=== PATIENT | female | born 1985 | race Caucasian/White ===

== ENCOUNTER 2019-02-04 14:24 | Emergency (ER) | payer OTHER, SELFPAY ==
[2019-02-04 15:30] LABS: Absolute Lymphocytes (CBC) 1.9 K/uL (0.7-4.9); Basophils % 0.4 % (0-1.3); Hematocrit 33.5 % (36.0-45.0); Lymphocytes % 22.9 % (15.3-44.8); MPV 10.3 fL (7.6-11.3); RBC Red Blood Cell Count 3.72 M/uL (3.86-4.86)
[2019-02-04 15:56] LABS: Potassium 3.5 mmol/L (3.5-5.1)
[2019-02-04 16:19] LABS: Thyroid Stimulating Hormone 5.88 uIU/mL (0.360-3.740)
--- NOTE | 2019-02-04 17:05 | EDPHYS ---
Physician Documentation [facility] Name: Sudha Eisenberg Age: 33 yrs Sex: Female : 1985 Arrival Date: 02/04/2019 Time: 14:28 Bed 30 Private MD: ED Physician Rosario Rivera HPI: 02/04 15:02 This 33 yrs old Female presents to ER via Ambulatory with complaints of ma2 Vaginal Bleeding, + Preg <12wks. 15:02 The patient presents to the emergency department with abdominal pain, of the suprapubic ma2 area, that started yesterday. The estimated gestational age is 5 weeks. Previous pregnancies: the patient has never been . Associated signs and symptoms: Pertinent negatives: chest pain, dysuria, frequency, seizure, shortness of breath. The patient has not experienced similar symptoms in the past. Historical: - Allergies: 14:46 No Known Allergies; tr5 - Home Meds: 14:46 aspirin 81 mg Oral chew [Active]; Folic Acid Oral [Active]; tr5 - PMHx: 14:46 ectopic ; tr5 - Immunization history:: Adult Immunizations up to date. - Social history:: Smoking status: Patient/guardian denies using tobacco, never smoked, Patient/guardian denies using alcohol, street drugs, The patient lives with family. - Ebola Screening: : No symptoms or risks identified at this time. - Family history:: not pertinent. ROS: 15:02 Constitutional: Negative for fever, chills, and weight loss. ma2 15:02 All other systems are negative. Exam: 15:02 Constitutional: This is a well developed, well nourished patient who is awake, alert, ma2 and in no acute distress. Chest/axilla: Normal chest wall appearance and motion. Nontender with no deformity. No lesions are appreciated. Cardiovascular: Regular rate and rhythm with a normal S1 and S2. No gallops, murmurs, or rubs. Normal PMI, no JVD. No pulse deficits. Respiratory: Lungs have equal breath sounds bilaterally, clear to auscultation and percussion. No rales, rhonchi or wheezes noted. No increased work of breathing, no retractions or nasal flaring. Abdomen/GI: Soft, non-tender, with normal bowel sounds. No distension or tympany. No guarding or rebound. No evidence of tenderness throughout. MS/ Extremity: Pulses equal, no cyanosis. Neurovascular intact. Full, normal range of motion. Neuro: Awake and alert, GCS 15, oriented to person, place, time, and situation. Cranial nerves II-XII grossly intact. Motor strength 5/5 in all extremities. Sensory grossly intact. Cerebellar exam normal. Normal gait. Vital Signs: 14:46 BP 111 / 83; Pulse 81; Resp 16; Temp 98.9(O); Pulse Ox 100% on R/A; Weight 63.5 kg; tr5 Height 5 ft. 5 in. (165.10 cm); 16:04 BP 115 / 84; Pulse 85; Resp 16; Pulse Ox 100% on R/A; tr5 14:46 Body Mass Index 23.30 (63.50 kg, 165.10 cm) tr5 MDM: 14:39 Patient medically screened. [facility] 15:02 Differential diagnosis: ectopic , threatining . [facility] 17:03 Data reviewed: vital signs, nurses notes. Counseling: I had a detailed discussion with ma the patient and/or guardian regarding: the historical points, exam findings, and any diagnostic results supporting the discharge/admit diagnosis, the presence of at least one elevated blood pressure reading (>120/80) during this emergency department visit, the need for outpatient follow up. Response to treatment: the patient's symptoms have mildly improved after treatment. 02/04 14:39 Order name: Quantitative Hcg; Complete Time: 16:33 [facility] 02/04 14:39 Order name: Abo/rh Typing; Complete Time: 16:03 [facility] 02/04 14:39 Order name: Basic Metabolic Panel; Complete Time: 16:33 [facility] 02/04 14:39 Order name: CBC with Diff; Complete Time: 16:03 [facility] 02/04 14:56 Order name: TSH; Complete Time: 16:33 [facility] 02/04 14:56 Order name: T4 Free; Complete Time: 16:33 [facility] 02/04 14:39 Order name: IV Saline Lock; Complete Time: 15:18 [facility] 02/04 14:39 Order name: Labs collected and sent; Complete Time: 15:18 [facility] 02/04 14:39 Order name: NPO; Complete Time: 14:49 [facility] 02/04 14:40 Order name: Urine Dipstick-Ancillary (obtain specimen); Complete Time: 15:22 [facility] 02/04 15:00 Order name: Urine Dipstick--Ancillary (enter results) 02/04 15:00 Order name: Urine --Ancillary (enter results) 02/04 17:04 Order name: TRANSVAG OB EDMS Administered Medications: No medications were administered Disposition: 02/04/19 17:04 Discharged to Home. Impression: Hypothyroidism, unspecified, Threatened . - Condition is Stable. - Discharge Instructions: Hypothyroidism, Threatened Miscarriage, Pelvic Rest. - Prescriptions for Levothyroxine 25 mcg Oral Tablet - take 1 tablet by ORAL route once daily take 30 minutes before breakfast; 20 tablet. - Medication Reconciliation Form, Thank You Letter, Antibiotic Education, Prescription Opioid Use, Work release form form. - Follow up: Private Physician; When: Tomorrow; Reason: Continuance of care. - Notes: consultyour obgyn tomorrow morningbefore you takeaspirin.. Signatures: Dispatcher [employer] [facility] Rosario Rivera MD MD ma2 Kee Zuniga RN RN tr5 Corrections: (The following items were deleted from the chart) 17:04 14:57 OB Complete+US.RAD.BRZ ordered. [facility] 17:34 17:04 02/04/2019 17:04 Discharged to Home. Impression: Hypothyroidism, unspecified; tr5 Threatened . Condition is Stable. Discharge Instructions: Hypothyroidism. Prescriptions for Levothyroxine 25 mcg Oral Tablet - take 1 tablet by ORAL route once daily take 30 minutes before breakfast; 20 tablet. and Forms are Medication Reconciliation Form, Thank You Letter, Antibiotic Education, Prescription Opioid Use. Follow up: Private Physician; When: Tomorrow; Reason: Continuance of care. ma2
--- NOTE | 2019-02-04 17:05 | ER ---
Nurse's Notes [facility] Name: Sudha Eisenberg Age: 33 yrs Sex: Female : 1985 Arrival Date: 02/04/2019 Time: 14:28 Bed 30 Private MD: Diagnosis: Hypothyroidism, unspecified;Threatened Presentation: 02/04 14:41 Presenting complaint: Patient states: "Tuesday i started bleeding lightly and have been tr5 on and off since then. Today i started having some cramps but the bleeding has slowed down. I have had many miscarriages in the past as well as an ectopic so I just wanted to get checked out". Transition of care: patient was not received from another setting of care. Onset of symptoms was February 02, 2019. Risk Assessment: Do you want to hurt yourself or someone else? Patient reports no desire to harm self or others. Initial Sepsis Screen: Does the patient meet any 2 criteria? No. Patient's initial sepsis screen is negative. Does the patient have a suspected source of infection? No. Patient's initial sepsis screen is negative. Care prior to arrival: None. 14:41 Method Of Arrival: Ambulatory tr5 14:41 Acuity: PATRICIA 4 tr5 Historical: - Allergies: 14:46 No Known Allergies; tr5 - Home Meds: 14:46 aspirin 81 mg Oral chew [Active]; Folic Acid Oral [Active]; tr5 - PMHx: 14:46 ectopic ; tr5 - Immunization history:: Adult Immunizations up to date. - Social history:: Smoking status: Patient/guardian denies using tobacco, never smoked, Patient/guardian denies using alcohol, street drugs, The patient lives with family. - Ebola Screening: : No symptoms or risks identified at this time. - Family history:: not pertinent. Screenin:49 Abuse screen: Denies threats or abuse. Nutritional screening: No deficits noted. tr5 Tuberculosis screening: No symptoms or risk factors identified. Fall Risk None identified. Assessment: 14:49 Obstetrical Assessment: General assessment: awake and alert, Rupture of membranes tr5 noted. Patient reports abdominal cramping. General: Appears in no apparent distress. Behavior is calm, cooperative, appropriate for age. Pain: Complains of pain in abdomen. Neuro: Level of Consciousness is awake, alert, obeys commands, Oriented to person, place, time, Link Trainer Teacher are equal bilaterally Moves all extremities. Cardiovascular: Heart tones present Capillary refill < 3 seconds Pulses are all present. Edema is absent. Respiratory: Airway is patent Respiratory effort is even, unlabored, Respiratory pattern is regular, symmetrical. GI: Abdomen is flat, Bowel sounds present X 4 quads. Abd is soft X 4 quads Reports lower abdominal pain. : Reports vaginal bleeding that is bright red, light flow. EENT: No signs and/or symptoms were reported regarding the EENT system. 16:09 Reassessment: Patient appears in no apparent distress at this time. Patient and/or tr5 family updated on plan of care and expected duration. Pain level reassessed. Patient is alert, oriented x 3, equal unlabored respirations, skin warm/dry/pink. General:. Vital Signs: 14:46 BP 111 / 83; Pulse 81; Resp 16; Temp 98.9(O); Pulse Ox 100% on R/A; Weight 63.5 kg; tr5 Height 5 ft. 5 in. (165.10 cm); 16:04 BP 115 / 84; Pulse 85; Resp 16; Pulse Ox 100% on R/A; tr5 14:46 Body Mass Index 23.30 (63.50 kg, 165.10 cm) tr5 ED Course: 14:28 Patient arrived in ED. mr 14:39 Rosario Rivera MD is Attending Physician. ma2 14:40 Kee Zuniga, ALE is Primary Nurse. tr5 14:44 Triage completed. tr5 14:45 Arm band placed on Patient placed. tr5 14:49 Bed in low position. Call light in reach. Side rails up X 1. tr5 15:43 Radiology exam delayed due to test not completed at this time. sg3 16:12 Awaiting: Ultrasound. tr5 17:03 Ultrasound completed. Patient tolerated well. Notified. sg3 17:06 TRANSVAG OB In Process Unspecified. EDMS 17:31 No provider procedures requiring assistance completed. IV discontinued. tr5 Administered Medications: No medications were administered Outcome: 17:04 Discharge ordered by . ma2 17:31 Discharged to home tr5 17:31 Condition: stable 17:31 Discharge instructions given to patient, family, Instructed on discharge instructions, follow up and referral plans. medication usage, Demonstrated understanding of instructions, follow-up care, medications. 17:34 Patient left the ED. tr5 Signatures: Dispatcher [employer] Leda Plummer Naima sg3 Rosario Rivera MD MD ma2 Kee Zuniga, RN RN tr5 Corrections: (The following items were deleted from the chart) 15:18 14:46 BP 111 / 83; Pulse 81bpm; Resp 16bpm; Pulse Ox 100% RA; 63.5 kg; Height 5 ft. 5 tr5 in.; BMI: 23.3; tr5
--- NOTE | 2019-02-04 17:14 | RAD REPORT ---
EXAM DESCRIPTION: US - TRANSVAG OB - 02/04/2019 5:06 pm CLINICAL HISTORY: with abdominal pain COMPARISON: None FINDINGS: The uterus measures 9 x 5 x 5 centimeters. A 4 millimeters sac is present within the endo metrium. A pole is not seen. A yolk sac is not demonstrated. The ovaries are normal in size echotexture. Right and left adnexa unremarkable. No significant free fluid IMPRESSION: 4 millimeter sac within the endometrium probably a gestational sac associated with intra uterine . Estimated gestational age 5 weeks 0 days. Other considerations include an incomplete and pseudo gestational sac associated with ectopi c . This all should be correlated clinically and with serial beta HCG levels. Followup endov aginal sonogram in 1 week recommended
[2019-02-04 17:45] VITALS: TEMP 98.9; O2SAT 100
[2019-02-04 17:47] VITALS: BP 115/84
[2019-02-04 20:44] LABS: Urine Blood 2+ (NEG); Urine Glucose NEGATIVE (NEG); Urine Protein NEGATIVE (NEG); Urine Specific Gravity 1.015 (1.005-1.030)
--- OUTSIDE RECORDS SUMMARY | 2019-02-05 07:10 | XMS REPORT ---
:1985 [facility] [address] [place] [address] Care Team Providers Name Role Phone Unavailable Unavailable Unavailable Payers Payer Name Policy Type Policy Number Effective Date Expiration Date Problems This patient has no known problems. Allergies, Adverse Reactions, Alerts Allergy Allergy Status Severity Reaction(s) Onset Inactive Treating Comments Name Type Date Date Clinician No Known DA Active U 2013-07 Allergies 00:00:0 0 Medications This patient has no known medications. Results Test Description Test Time Test Comments Text Results Atomic Results Result Comments CBC W/AUTO DIFF 2018-11-10 10:36:00 Test Item Value Reference Range Comments WHITE BLOOD CELL (test code=WBC) 6.0 K/mm3 6.6-12.1 RED BLOOD CELL (test code=RBC) 3.56 M/mm3 3.45-5.01 HEMOGLOBIN (test code=HGB) 10.7 g/dL 10.7-13.9 HEMATOCRIT (test code=HCT) 32.8 % 32.1-42.1 MEAN CELL VOLUME (test code=MCV) 92 fL 84.1-94.8 MEAN CELL HGB (test code=MCH) 30.1 pg 27-35 MEAN CELL HGB CONCETRATION (test code=MCHC) 32.6 gm/dL 32.2-34.1 RED CELL DISTRIBUTION WIDTH (test code=RDW) 13.1 % 12.4-16.5 PLATELET COUNT (test code=PLT) 192 K/mm3 133-385 IMMATURE PLATELET FRACTION (test code=IPF) 0.0 % 0.0-10.8 MEAN PLATELET VOLUME (test code=MPV) 11.4 fl 9.1-12.7 NEUTROPHIL % (test code=NT%) 49.5 % 56.5-79.4 LYMPHOCYTE % (test code=LY%) 39.0 % 14.3-34.3 MONOCYTE % (test code=MO%) 9.7 % 5.1-10.4 EOSINOPHIL % (test code=EO%) 1.2 % 0.1-3.0 BASOPHIL % (test code=BA%) 0.3 % 0.1-1.0 NEUTROPHIL # (test code=NT#) 3.0 K/mm3 LYMPHOCYTE # (test code=LY#) 2.3 K/mm3 MONOCYTE # (test code=MO#) 0.6 K/mm3 EOSINOPHIL # (test code=EO#) 0.07 K/mm3 BASOPHIL # (test code=BA#) 0.0 K/mm3 RBC MORPHOLOGY REQUIRED (test code=RBCM) NORMAL NORMAL PLATELET MORPHOLOGY REQUIRED (test code=PLTMR) NORMAL NORMAL HCG [id number] 08:17:00 Test Item Value Reference Range Comments HCG SERUM (test code=HCG) 295 INTERPRETATION:VALUES BETWEEN 15-20 milliInternational units/mL NEED TO BERETESTED WITHIN 48 HOURS. All units for these ranges are in milliInternationalunits/mL0-1 WK AFTER CONCEPTION 0-50 1-2 WKS AFTER CONCEPTION 40-3002-3 WKS AFTER CONCEPTION 100-1,0003-4 WKS AFTER CONCEPTION 500-6,0001-2 MONTHS AFTER CONCEPTION 5,000-200,0002-3 MONTHS AFTER CONCEPTION 10,000-100,0002ND TRIMESTER 3,000-50,0003RD TRIMESTER 1,000-50,000 SPECIMENS WITH AN HCG LEVEL FROM 0-6 milliInternationalunits/mL SHOULD BE CONSIDERED NEGATIVE Comments to Dock Guard: noneHGB [id number] 03:32:00 Test Item Value Reference Range Comments HEMOGLOBIN (test code=HGB) 11.4 g/dL 10.7-13.9 HEMATOCRIT (test code=HCT) 34.7 % 32.1-42.1 - US TRANSVAGINAL [id number] 20:06:00 Patient Name: NATALIYA MERINO Unit No: [id number] EXAMS: CPT CODE: [id number] US TRANSVAGINAL W/PELVIS 81480 TRANSABDOMINAL AND TRANSVAGINAL PELVIC ULTRASOUND, BILATERAL DUPLEX OVARIAN DOPPLER INDICATION: Left lower quadrant and pelvic pain. Vaginal bleeding. Rule out ovarian torsion.. HCG 267. TECHNIQUE: Transabdominal and transvaginal pelvic ultrasound was performed with larson scale and Doppler images. COMPARISONS: None FINDINGS: TRANSABDOMINAL PELVIC ULTRASOUND : The uterus measures 8 x 4.5 x 5.4 cm. There is a 1.3 x 0.6 x 1 cm fluid collection within the endometrial canal. There is no yolk sac or pole detected. The right ovary measures 2.2 x 1.5 x 2.1 cm. There is normal color Doppler blood flow to the right ovary. There is a normal low resistance arterial spectral Doppler waveform with peak systolic velocity of 10 cm/s. The left ovary measures 4.6 x 3.6 x 4.7 cm. There is a simple 3.7 cm cyst in the left ovary that requires no additional follow-up. There is normal color Doppler blood flow to the left ovary. There is a normal low resistance arterial and venous spectral Doppler waveform with peak systolic velocity of 70 cm/s. There is no intra-abdominal free fluid. Transvaginal pelvic ultrasound was performed inorder to better visualize the pelvic structures. TRANSVAGINAL PELVIC ULTRASOUND: The cervix is closed and the cervical length is 3.7 cm. The uterus measures 6.4 x 4.7 x 5.6 cm. The endometrial stripe measures 1.2 cm thick. The right ovary measures 2.7 x 1.3 x 2.7 cm and demonstrates normal follicular changes. There is normal color Doppler blood flow to the right ovary. There is a normal low resistance arterial and venous spectral Doppler waveform with peak systolic velocity of 12 cm/s. The left ovary measures 5.1 x 3.9 x 3.5 cm. There is a simple cyst in the left ovary that measures up to 3.6 cm and requires no additional follow-up. There is normal color Doppler blood flow in the left ovary. There is a normal low resistance arterial and venous spectral Doppler waveform with peak systolic velocity of 20 cm/s. The [facility] NAME: NATALIYA MERINO Radiology Department PHYS: MYAH.[email or web address] - Estephania Robert MD [address] : 1985 AGE: 32 SEX: F [place], [place] [address] LOC: JOJO PHONE #: [phone] EXAM DATE: 11/09/2018 STATUS: DEANDRE ER FAX #: [phone] RAD NO: Page 1 Signed Report (CONTINUED) Patient Name: NATALIYA MERINO Unit No: [id number] EXAMS: CPT CODE: [id number] US TRANSVAGINAL W/PELVIS 82103 <Continued> Thereis a trace amount of simple appearing free fluid in the left adnexal region of the pelvis. BILATERAL OVARIAN DUPLEX DOPPLER: There is normal color Doppler blood flow in the left ovary. Thereis a normal low resistance arterial and venous spectral Doppler waveform with peak systolic velocity of 20 cm/s. There is normal color Doppler blood flow to the right ovary. There is a normal low resistance arterial and venous spectral Doppler waveform with peak systolic velocity of 12 cm/s. IMPRESSION: 1. There is a small area of nonspecific fluid in the endometrial canal measuring up to 1.3 cm, but no definitive intrauterine or extrauterine gestational sac sac identified. The findings could be secondary to spontaneous expulsion of products, hidden ectopic with endometrial pseudocyst or very early . Close clinical correlation is recommended. Consider short-term follow-up ultrasound and beta hCG. 2. Normal bilateral ovarian blood flow. 3. There is a benign-appearing simple cyst in the left ovary that measuresup to 3.6 cm in size and requires no additional follow-up. 4. There is a trace amount of simple appearing free fluid in the left adnexal region of the pelvis. at 2005 Reported and signed by: Carlos Vásquez DO CC: Naila Alexander MD; Estephania Robert MD Technologist: Taryn Arciniega RDMS, RVT Probe: [id number] Trnscrbd D/ (2005) [id number] Orig Print D /T: S: 11/09/2018 (2008) The [facility] NAME: NATALIYA MERINO Radiology Department PHYS: Estephania Fields MD [address] : 1985 AGE: 32 SEX: F [place] [address] LOC: JOJO PHONE #: [phone] EXAM DATE: STATUS: REG ER FAX #: [phone] RAD NO: Page 2 Signed Report Patient Name: NATALIYA MERINO Unit No: [id number] EXAMS : CPT CODE: [id number] US TRANSVAGINAL W/PELVIS 27802 <Continued> The [facility] NAME: ANGELIQUENATALIYA RadiologyDepartment PHYS: Estephania Fields MD [address]: 1985 AGE: 32 SEX: F [place], [place] [address] LOC:JOJO PHONE #: [phone] EXAM DATE: 11/09/2018 STATUS: REG ER FAX #: [phone] RAD NO: Page 3 Signed Report- US PELVIS [id number] 20:06:00 Patient Name: NATALIYA MERINO Unit No: [id number] EXAMS: CPT CODE: [id number] US PELVIS COMPLETE 85521 TRANSABDOMINAL AND TRANSVAGINAL PELVIC ULTRASOUND, BILATERAL DUPLEX OVARIAN DOPPLER INDICATION: Left lower quadrant and pelvic pain. Vaginal bleeding. Rule out ovarian torsion.. HCG 267. TECHNIQUE: Transabdominal and transvaginal pelvic ultrasound was performed with larson scale and Doppler images. COMPARISONS: None FINDINGS: TRANSABDOMINAL PELVIC ULTRASOUND : The uterus measures 8 x 4.5 x 5.4 cm. There is a 1.3 x 0.6 x 1 cm fluid collection within the endometrial canal. There is no yolk sac or pole detected. The right ovary measures 2.2 x 1.5 x 2.1 cm. There is normal color Doppler blood flow to the right ovary. There is a normal low resistance arterial spectral Doppler waveform with peak systolic velocity of 10 cm/s. The left ovary measures 4.6 x 3.6 x 4.7 cm. There is a simple 3.7 cm cyst in the left ovary that requires no additional follow-up. There is normal color Doppler blood flow to the left ovary. There is a normal low resistance arterial and venous spectral Doppler waveform with peak systolic velocity of 70 cm/s. There is no intra-abdominal free fluid. Transvaginal pelvic ultrasound was performed inorder to better visualize the pelvic structures. TRANSVAGINAL PELVIC ULTRASOUND: The cervix is closed and the cervical length is 3.7 cm. The uterus measures 6.4 x 4.7 x 5.6 cm. The endometrial stripe measures 1.2 cm thick. The right ovary measures 2.7 x 1.3 x 2.7 cm and demonstrates normal follicular changes. There is normal color Doppler blood flow to the right ovary. There is a normal low resistance arterial and venous spectral Doppler waveform with peak systolic velocity of 12 cm/s. The left ovary measures 5.1 x 3.9 x 3.5 cm. There is a simple cyst in the left ovary that measures up to 3.6 cm and requires no additional follow-up. There is normal color Doppler blood flow in the left ovary. There is a normal low resistance arterial and venous spectral Doppler waveform with peak systolic velocity of 20 cm/s. The [facility] NAME: IRASEMA MERINOBhupinder DENNIS Radiology Department PHYS: FABBY - Estephania Robert MD [address] : 1985 AGE: 32 SEX: F [place], [place] [address] LOC: JOJO PHONE #: [phone] EXAM DATE: 11/09/2018 STATUS: REG ER FAX #: [phone] RAD NO: Page 1 Signed Report (CONTINUED) Patient Name: NATALIYA MERINO JEANNIE Unit No: [id number] EXAMS: CPT CODE: [id number] US PELVIS COMPLETE 11221 <Continued> Thereis a trace amount of simple appearing free fluid in the left adnexal region of the pelvis. BILATERAL OVARIAN DUPLEX DOPPLER: There is normal color Doppler blood flow in the left ovary. Thereis a normal low resistance arterial and venous spectral Doppler waveform with peak systolic velocity of 20 cm/s. There is normal color Doppler blood flow to the right ovary. There is a normal low resistance arterial and venous spectral Doppler waveform with peak systolic velocity of 12 cm/s. IMPRESSION: 1. There is a small area of nonspecific fluid in the endometrial canal measuring up to 1.3 cm, but no definitive intrauterine or extrauterine gestational sac sac identified. The findings could be secondary to spontaneous expulsion of products, hidden ectopic with endometrial pseudocyst or very early . Close clinical correlation is recommended. Consider short-term follow-up ultrasound and beta hCG. 2. Normal bilateral ovarian blood flow. 3. There is a benign-appearing simple cyst in the left ovary that measuresup to 3.6 cm in size and requires no additional follow-up. 4. There is a trace amount of simple appearing free fluid in the left adnexal region of the pelvis. at 2006 Reported and signed by: Carlos Vásquez DO CC: Naila Alexander MD; Estephania Robert MD Technologist: Taryn Arciniega RDMS, RVT Probe: Trnscrbd D/ (2005) [email or web address] Orig Print D /T: S: 11/09/2018 (2008) The [place] [facility] NAME: NATALIYA MERINO Radiology Department PHYS: Estephania Fields MD [address] : 1985 AGE: 32 SEX: F [place] [address] LOC: JohnERS PHONE #: [phone] EXAM DATE: STATUS: REG ER FAX #: [phone] RAD NO: Page 2 Signed Report Patient Name: NATALIYA MERINO JEANNIE Unit No: [id number] EXAMS : CPT CODE: [id number] US PELVIS COMPLETE 22303 <Continued> The [facility] NAME: NATALIYA MERINO RadiologyDepartment PHYS: Estephania Fields MD [address]OB: 1985 AGE: 32 SEX: F [place] [address] LOC:JohnERS PHONE #: [phone] EXAM DATE: 11/09/2018 STATUS: REG ER FAX #: [phone] RAD NO: Page 3 Signed ReportHCG [id number] 19:43:00 Test Item Value Reference Range Comments HCG SERUM (test code=HCG) 267 INTERPRETATION:VALUES BETWEEN 15-20 milliInternational units/mL NEED TO BERETESTED WITHIN 48 HOURS. All units for these ranges are in milliInternationalunits/mL0-1 WK AFTER CONCEPTION 0-50 1-2 WKS AFTER CONCEPTION 40-3002-3 WKS AFTER CONCEPTION 100-1,0003-4 WKS AFTER CONCEPTION 500-6,0001-2 MONTHS AFTER CONCEPTION 5,000-200,0002-3 MONTHS AFTER CONCEPTION 10,000-100,0002ND TRIMESTER 3,000-50,0003RD TRIMESTER 1,000-50,000 SPECIMENS WITH AN HCG LEVEL FROM 0-6 milliInternationalunits/mL SHOULD BE CONSIDERED NEGATIVE COMPREHENSIVE METABOLIC [id number] 19:34:00 Test Item Value Reference Range Comments SODIUM (test code=NA) 137 mEq/L 135-145 POTASSIUM (test code=K) 4.4 mEq/L 3.5-5.0 CHLORIDE (test code=CL) 104 mEq/L 100-115 CARBON DIOXIDE (test code=CO2) 24 mEq/L 22-31 ANION GAP (test code=GAP) 13.40 10-20 GLUCOSE (test code=GLU) 78 mg/dL 65-110 BLOOD UREA NITROGEN (test code=BUN) 12 mg/dL 7-18 GLOMERULAR FILTRATION RATE (test code=GFR) 98 ml/min >60 CREATININE (test code=CREAT) 0.7 mg/dL 0.5-1.0 TOTAL PROTEIN (test code=PROT) 7.8 gm/dL 6.3-8.2 ALBUMIN (test code=ALB) 4.0 gm/dL 3.4-4.8 CALCIUM (test code=CA) 8.9 mg/dL 8.4-10.2 BILIRUBIN TOTAL (test code=BILT) 0.5 mg/dL 0.2-1.0 SGOT/AST (test code=AST) 26 units/L 15-37 SGPT/ALT (test code=ALT) 17 units/L 12-78 ALKALINE PHOSPHATASE TOTAL (test code=ALKP) 53 units/L 46-116 UA RFLX MICR CULT IF [id number] 19:17:00 Test Item Value Reference Range Comments UA COLOR (test code=COLU) YELLOW YELLOW UA APPEARANCE (test code=APPU) CLOUDY CLEAR UA GLUCOSE DIPSTICK (test code=DGLUU) NEGATIVE NEG UA BILIRUBIN DIPSTICK (test code=BILU) NEGATIVE NEG UA KETONE DIPSTICK (test code=KETU) NEGATIVE NEG UA SPECIFIC GRAVITY (test code=SGU) 1.018 1.001-1.035 UA BLOOD DIPSTICK (test code=ADRIANE) 3+ NEG UA PH DIPSTICK (test code=IRMA) 7.0 5-9 UA PROTEIN DIPSTICK (test code=PROU) NEGATIVE NEG UA UROBILINIOGEN DIPSTICK (test code=URO) NEGATIVE mg/dL NEG UA NITRITE DIPSTICK (test code=MOHINI) NEG NEG UA LEUKOCYTE ESTERASE DIPSTICK (test NEG NEG code=LEUU) UA WBC (test code=WBCU) NONE SEEN #/hpf NONE SEEN UA RBC (test code=RBCU) 0-2 #/hpf NONE SEEN UA EPITHELIAL CELLS (test code=EPIU) FEW #/HPF RARE-FEW UA BACTERIA (test code=BACU) RARE /HPF RARE-FEW UA MUCUS (test code=MUCU) RARE NONE SEEN Indication for culture: Suprapubic PainCBC W/AUTO [id number] 19:02:00 Test Item Value Reference Range Comments WHITE BLOOD CELL (test code=WBC) 9.0 K/mm3 6.6-12.1 RED BLOOD CELL (test code=RBC) 3.80 M/mm3 3.45-5.01 HEMOGLOBIN (test code=HGB) 11.4 g/dL 10.7-13.9 HEMATOCRIT (test code=HCT) 34.7 % 32.1-42.1 MEAN CELL VOLUME (test code=MCV) 91 fL 84.1-94.8 MEAN CELL HGB (test code=MCH) 30.0 pg 27-35 MEAN CELL HGB CONCETRATION (test code=MCHC) 32.9 gm/dL 32.2-34.1 RED CELL DISTRIBUTION WIDTH (test code=RDW) 13.1 % 12.4-16.5 PLATELET COUNT (test code=PLT) 287 K/mm3 133-385 IMMATURE PLATELET FRACTION (test code=IPF) 0.0 % 0.0-10.8 MEAN PLATELET VOLUME (test code=MPV) 12.5 fl 9.1-12.7 NEUTROPHIL % (test code=NT%) 60.4 % 56.5-79.4 LYMPHOCYTE % (test code=LY%) 30.2 % 14.3-34.3 MONOCYTE % (test code=MO%) 8.4 % 5.1-10.4 EOSINOPHIL % (test code=EO%) 0.6 % 0.1-3.0 BASOPHIL % (test code=BA%) 0.2 % 0.1-1.0 NEUTROPHIL # (test code=NT#) 5.5 K/mm3 LYMPHOCYTE # (test code=LY#) 2.7 K/mm3 MONOCYTE # (test code=MO#) 0.8 K/mm3 EOSINOPHIL # (test code=EO#) 0.05 K/mm3 BASOPHIL # (test code=BA#) 0.0 K/mm3 RBC MORPHOLOGY REQUIRED (test code=RBCM) NORMAL NORMAL PLATELET MORPHOLOGY REQUIRED (test code=PLTMR) NORMAL NORMAL
== END 2019-02-04 17:34 | disposition home or self-care (01) ==
LOC: ER 14:24
DX: O20.0 Threatened abortion (principal); O99.281 Endocrine, nutritional and metabolic diseases complicating pregnancy, first trimester; E03.9 Hypothyroidism, unspecified; Z3A.01 Less than 8 weeks gestation of pregnancy; Z79.82 Long term (current) use of aspirin
CPT/HCPCS: 36415; 76813; 80048; 81003; 81025; 84439; 84443; 84702; 85025; 86900; 86901; 99283

== ENCOUNTER 2019-02-23 17:24 | Emergency (ER) | payer SELFPAY ==
--- OUTSIDE RECORDS SUMMARY | 2019-02-23 17:26 | XMS REPORT ---
:1985 [facility] [address] [place] [address] Care Team Providers Name Role Phone Unavailable Unavailable Unavailable Payers Payer Name Policy Type Policy Number Effective Date Expiration Date Problems This patient has no known problems. Allergies, Adverse Reactions, Alerts Allergy Allergy Status Severity Reaction(s) Onset Inactive Treating Comments Name Type Date Date Clinician No Known DA Active U 2013-07 Allergies - 00:00:0 0 Medications This patient has no [...] MORPHOLOGY REQUIRED (test code=PLTMR) NORMAL NORMAL HCG [id number] 08:17:00 Test Item Value Reference Range Comments [...] milliInternationalunits/mL SHOULD BE CONSIDERED NEGATIVE Comments to Vehicle Cost Engineer: noneHGB [id number] 03:32:00 Test Item Value Reference Range Comments HEMOGLOBIN (test code=HGB) 11.4 g/dL 10.7-13.9 HEMATOCRIT (test code=HCT) 34.7 % 32.1-42.1 - US TRANSVAGINAL [id number] 20:06:00 Patient Name: NATALIYA MERINO Unit No: [id number] EXAMS: CPT CODE: [id number] US TRANSVAGINAL W/PELVIS 28328 TRANSABDOMINAL AND TRANSVAGINAL PELVIC ULTRASOUND, BILATERAL DUPLEX [...] peak systolic velocity of 20 cm/s. The [facility] NAME: NATALIYA MERINO Radiology Department PHYS: MYAH.14 - Estephania Robert MD [address] : 1985 AGE: 32 SEX: F [place], [place] [address] LOC: JOJO PHONE #: [phone] EXAM DATE: 11/09/2018 STATUS: REG ER FAX #: [phone] RAD NO: Page 1 Signed Report (CONTINUED) Patient Name: NATALIYA MERINO Unit No: [id number] EXAMS: CPT CODE: [id number] US TRANSVAGINAL W/PELVIS 40630 <Continued> Thereis a trace amount of simple [...] Estephania Robert MD Technologist: Taryn Arciniega RDMS, T Probe: [id number] Trnscrbd D/ (2005) [id number] Orig Print D /T: S: 11/09/2018 (2008) [facility] NAME: NATALIYA MERINO Radiology Department PHYS: Estephania Fields MD [address] : 1985 AGE: 32 SEX: [place] [address] LOC: JOJO PHONE #: [phone] EXAM DATE: STATUS: REG ER FAX #: [phone] RAD NO: Page 2 Signed Report Patient Name: NATALIYA MERINO Unit No: [id number] EXAMS : CPT CODE: [id number] US TRANSVAGINAL W/PELVIS 75652 <Continued> The [facility] NAME: NATALIYA MERINO RadiologyDepartment PHYS: MYAHTusharEstephania Davis MD [address]: 1985 AGE: 32 SEX: F [place], [place] [address] LOC:JOJO PHONE #: [phone] EXAM DATE: 11/09/2018 STATUS: REG ER FAX #: [phone] RAD NO: Page 3 Signed Report- US PELVIS [id number] 20:06:00 Patient Name: NATALIYA MERINO Unit No: [id number] EXAMS: CPT CODE: [id number] US PELVIS COMPLETE 54612 TRANSABDOMINAL AND TRANSVAGINAL PELVIC ULTRASOUND, BILATERAL DUPLEX [...] peak systolic velocity of 20 cm/s. The [facility] NAME: IRASEMA MERINOBhupinder DENNIS Radiology Department PHYS: FABBY - Estephania Robert MD [address] : 1985 AGE: 32 SEX: F [place], [place] [address] LOC: JOJO PHONE #: [phone] EXAM DATE: 11/09/2018 STATUS: REG ER FAX #: [phone] RAD NO: Page 1 Signed Report (CONTINUED) Patient Name: NATALIYA MERINO JEANNIE Unit No: [id number] EXAMS: CPT CODE: [id number] US PELVIS COMPLETE 75665 <Continued> Thereis a trace amount of simple [...] Arciniega RDMS, RVT Probe: Trnscrbd D/ (2005) [email or web address] Orig Print D /T: S: 11/09/2018 (2008) The [facility] NAME: NATALIYA MERINO Radiology Department PHYS: Estephania Fields MD [address] : 1985 AGE: 32 SEX: F [place] [address] [facility] #: [phone] EXAM DATE: STATUS: [facility] ER FAX #: [phone] RAD NO: Page 2 Signed Report Patient Name: NATALIYA MERINO JEANNIE Unit No: [id number] EXAMS : CPT CODE: [id number] US PELVIS COMPLETE 22085 <Continued> The [facility] NAME: NATALIYA MERINO RadiologyDepartment PHYS: Estephania Fields MD [address]OB: 1985 AGE: 32 SEX: F [place] [address] LOC:JohnERS PHONE #: [phone] EXAM DATE: 11/09/2018 STATUS: REG ER FAX #: [phone] RAD NO: Page 3 Signed ReportHCG [id number] 19:43:00 Test Item Value Reference Range [...] milliInternationalunits/mL SHOULD BE CONSIDERED NEGATIVE COMPREHENSIVE METABOLIC [id number] 19:34:00 Test Item Value Reference Range Comments [...] units/L 46-116 UA RFLX MICR CULT IF [id number] 19:17:00 Test Item Value Reference Range Comments [...] SEEN Indication for culture: Suprapubic PainCBC W/AUTO [id number] 19:02:00 Test Item Value Reference Range Comments [...]
--- NOTE | 2019-02-23 19:25 | ER ---
Nurse's Notes [facility] Name: Sudha Tang Age: 33 yrs Sex: Female : 1985 Arrival Date: 02/23/2019 Time: 17:27 Bed 9 Private MD: out of town, doctor Diagnosis: Less than 8 weeks gestation of ;Threatened Presentation: 02/23 18:41 Presenting complaint: Patient states: vaginal bleeding that is spotting that began aa5 today. Reports lower abd pain and reports being approximately 8 weeks . Transition of care: patient was not received from another setting of care. Onset of symptoms was January 2019. Risk Assessment: Do you want to hurt yourself or someone else? Patient reports no desire to harm self or others. Initial Sepsis Screen: Does the patient meet any 2 criteria? No. Patient's initial sepsis screen is negative. Does the patient have a suspected source of infection? No. Patient's initial sepsis screen is negative. Care prior to arrival: None. 18:41 Acuity: PATRICIA 3 aa5 18:41 Method Of Arrival: Ambulatory aa5 Triage Assessment: 21:32 Pain: Denies pain. eb1 LOCAL DRIVER: 18:43 7, Full Term 1, Premature 1, 4, Living 2, LMP 12/25/2018 aa5 20:45 7, 4, Living 2, LMP 12/25/2018 kb Historical: - Allergies: 18:43 No Known Allergies; aa5 - PMHx: 18:43 ectopic ; aa5 - PSHx: 18:43 None; aa5 - Immunization history:: Flu vaccine is not up to date. - Social history:: Smoking status: Patient/guardian denies using tobacco. - Ebola Screening: : No symptoms or risks identified at this time. Screenin:00 Abuse screen: Denies threats or abuse. Nutritional screening: No deficits noted. bb Tuberculosis screening: No symptoms or risk factors identified. Fall Risk None identified. Assessment: 20:00 General: Appears in no apparent distress. uncomfortable, Behavior is calm, cooperative. bb Neuro: Level of Consciousness is awake, alert, obeys commands, Oriented to person, place, time, situation. Cardiovascular: No deficits noted. Respiratory: Respiratory effort is even, unlabored. GI: No signs and/or symptoms were reported involving the gastrointestinal system. : Reports vaginal bleeding that is. Derm: Skin is pink, warm \T\ dry. Musculoskeletal: Circulation, motion, and sensation intact. Vital Signs: 18:43 BP 121 / 83; Pulse 95; Resp 18 S; Temp 98.0(TE); Pulse Ox 100% on R/A; Weight 64.86 kg aa5 (R); Height 5 ft. 4 in. (162.56 cm) (R); 18:43 Body Mass Index 24.55 (64.86 kg, 162.56 cm) aa5 ED Course: 17:27 Patient arrived in ED. mr 17:27 out of town, doctor is Private Physician. mr 17:51 Bambi Monae FNP-C is PHCP. kb 17:51 Joseph Brito MD is Attending Physician. kb 18:41 Arm band placed on. aa5 18:42 Triage completed. aa5 19:24 Patient's name was called from ER lobby. No response. Unable to locate patient. Will bb disposition as left without being seen by a provider. 19:41 Bambi Monae FNP-C is PHCP. kb 19:41 Alexander Baig MD is Attending Physician. kb 20:00 Patient has correct armband on for positive identification. Call light in reach. bb 20:28 Missed attempt(s): 22 gauge in right antecubital area. lt1 20:28 Initial lab(s) drawn, by me, sent to lab. Inserted saline lock: 22 gauge in left lt1 antecubital area, using aseptic technique. 20:52 No provider procedures requiring assistance completed. bb 21:32 IV discontinued, intact, bleeding controlled, No redness/swelling at site. Pressure eb1 dressing applied. Administered Medications: No medications were administered Outcome: 19:24 Patient left the ED. bb 20:49 Discharge ordered by MD. kb 21:32 Discharged to home with family. eb1 21:32 Condition: good 21:32 Discharge instructions given to patient, Instructed on discharge instructions, medication usage, Demonstrated understanding of instructions, follow-up care, medications, Prescriptions given X 1. 21:33 Patient left the ED. eb1 Signatures: Bambi Monae FNP-C FNP-Leda Sanchez mr Celina Mosquera RN RN bb Cady Vo, RN RN aa5 Elin Hammonds, RN RN eb1 Ban Hu lt1
[2019-02-23 20:35] LABS: Absolute Lymphocytes (CBC) 2.3 K/uL (0.7-4.9); Basophils % 0.8 % (0-1.3); Hematocrit 32.2 % (36.0-45.0); Lymphocytes % 22.7 % (15.3-44.8); MPV 9.8 fL (7.6-11.3); RBC Red Blood Cell Count 3.56 M/uL (3.86-4.86)
[2019-02-23 20:49] LABS: Urine Blood 1+ (NEG); Urine Glucose NEGATIVE (NEG); Urine Protein NEGATIVE (NEG)
--- NOTE | 2019-02-23 20:50 | EDPHYS ---
Physician Documentation [facility] Name: Sudha Tang Age: 33 yrs Sex: Female : 1985 Arrival Date: 02/23/2019 Time: 17:27 Bed 9 Private MD: out of town, doctor ED Physician Alexander Baig HPI: 02/23 20:45 This 33 yrs old Female presents to ER via Ambulatory with complaints of kb Vaginal Bleeding, + Preg <12wks. 20:45 The patient presents to the emergency department with vaginal bleeding, described as kb spotting. The estimated gestational age is 8 weeks. course: care: private OB physician, KARRI. Previous pregnancies: in previous pregnancies patient has had. Associated signs and symptoms: Pertinent positives: vaginal bleeding. The patient has experienced similar episodes in the past. The patient has been recently seen by a physician:. 20:46 Pt reports spotting that started today. Her OB is in [place] at [facility] and told kb her to come get checked out due to pts history. Pt has appt with OB on Tuesday for follow up. Pt also requests a refill of levothyroxine for a couple of days until she can get to her appt. States she normally has to be on it when she is and her levels were off last time she came to the ER for this so the ER dr then started her on 25mcg daily. States she has one more left so she needs a few to get her to Tuesday. 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 - Social history:: Smoking status: Patient/guardian denies using tobacco. - Ebola Screening: : No symptoms or risks identified at this time. ROS: 20:44 Constitutional: Negative for fever, chills, and weight loss, Neck: Negative for injury, kb pain, and swelling, Cardiovascular: Negative for chest pain, palpitations, and edema, Respiratory: Negative for shortness of breath, cough, wheezing, and pleuritic chest pain, Abdomen/GI: Negative for abdominal pain, nausea, vomiting, diarrhea, and constipation, Back: Negative for injury and pain, MS/Extremity: Negative for injury and deformity, Skin: Negative for injury, rash, and discoloration, Neuro: Negative for headache, weakness, numbness, tingling, and seizure. 20:44 : Positive for vaginal bleeding. Exam: 20:44 Constitutional: This is a well developed, well nourished patient who is awake, alert, kb and in no acute distress. Head/Face: Normocephalic, atraumatic. Neck: Trachea midline, no thyromegaly or masses palpated, and no cervical lymphadenopathy. Supple, full range of motion without nuchal rigidity, or vertebral point tenderness. No Meningismus. Chest/axilla: Normal chest wall appearance and motion. Nontender with no deformity. No lesions are appreciated. Cardiovascular: Regular rate and rhythm with a normal S1 and S2. No gallops, murmurs, or rubs. Normal PMI, no JVD. No pulse deficits. Respiratory: Lungs have equal breath sounds bilaterally, clear to auscultation and percussion. No rales, rhonchi or wheezes noted. No increased work of breathing, no retractions or nasal flaring. Abdomen/GI: Soft, non-tender, with normal bowel sounds. No distension or tympany. No guarding or rebound. No evidence of tenderness throughout. Back: No spinal tenderness. No costovertebral tenderness. Full range of motion. Skin: Warm, dry with normal turgor. Normal color with no rashes, no lesions, and no evidence of cellulitis. MS/ Extremity: Pulses equal, no cyanosis. Neurovascular intact. Full, normal range of motion. Neuro: Awake and alert, GCS 15, oriented to person, place, time, and situation. Cranial nerves II-XII grossly intact. Motor strength 5/5 in all extremities. Sensory grossly intact. Cerebellar exam normal. Normal gait. Vital Signs: 18:43 BP 121 / 83; Pulse 95; Resp 18 S; Temp 98.0(TE); Pulse Ox 100% on R/A; Weight 64.86 kg aa5 (R); Height 5 ft. 4 in. (162.56 cm) (R); 18:43 Body Mass Index 24.55 (64.86 kg, 162.56 cm) aa5 MDM: 19:47 Patient medically screened. kb 20:45 Data reviewed: vital signs, nurses notes. Data interpreted: Pulse oximetry: on room air kb is 100 %. Interpretation: normal. Counseling: I had a detailed discussion with the patient and/or guardian regarding: the historical points, exam findings, and any diagnostic results supporting the discharge/admit diagnosis, lab results, radiology results, the need for outpatient follow up, a family practitioner, to return to the emergency department if symptoms worsen or persist or if there are any questions or concerns that arise at home. 20:49 ED course: Pt is O+ based on last visit. Pt wants to go home now and have her dr get kb the results of blood work on Tuesday. 02/23 18:47 Order name: Quantitative Hcg 02/23 18:47 Order name: Abo/rh Typing 02/23 18:47 Order name: Basic Metabolic Panel 02/23 18:47 Order name: CBC with Diff 02/23 20:42 Order name: Urine Dipstick--Ancillary (enter results) [facility] 02/23 20:42 Order name: Urine --Ancillary (enter results) [facility] 02/23 18:43 Order name: US Transvaginal Ob 02/23 20:50 Order name: Urine --Ancillary; Complete Time: 20:53 [facility] 02/23 20:50 Order name: Urine Dipstick-Ancillary; Complete Time: 20:53 [facility] 02/23 20:51 Order name: CBC with Automated Diff; Complete Time: 20:53 [facility] 02/23 21:04 Order name: US; Complete Time: 21:07 [facility] 02/23 21:09 Order name: Basic Metabolic Panel; Complete Time: 21:11 [facility] 02/23 21:09 Order name: HCG, Quantitative; Complete Time: 21:11 [facility] 02/23 21:31 Order name: ABO/RH typing [facility] 02/23 18:47 Order name: Urine Test (obtain specimen) 02/23 18:47 Order name: IV Saline Lock; Complete Time: 20:29 02/23 18:47 Order name: Labs collected and sent; Complete Time: 20: 02/23 18:47 Order name: NPO kb 02/23 18:47 Order name: Urine Dipstick-Ancillary (obtain specimen); Complete Time: 20:40 kb Administered Medications: No medications were administered Disposition: 02/23/19 20:49 Discharged to Home. Impression: Less than 8 weeks gestation of , Threatened . - Condition is Stable. - Discharge Instructions: First Trimester of , [id number], Threatened Miscarriage, [id number]. - Prescriptions for Levothyroxine 25 mcg Oral Tablet - take 1 tablet by ORAL route once daily take 30 minutes before breakfast; 20 tablet. - Medication Reconciliation Form, Thank You Letter, Antibiotic Education, Prescription Opioid Use form. - Follow up: Emergency Department; When: As needed; Reason: Worsening of condition. Follow up: Private Physician; When: 2 - 3 days; Reason: Recheck today's complaints, Continuance of care, Re-evaluation by your physician. Addendum: 02/26/2019 10:42 Co-signature as Attending Physician, Alexander Baig MD I agree with the assessment and c mendoza plan of care. Signatures: Dispatcher [employer] Bambi Holden, POST CLOSER-C POST CLOSER-Ckb Alexander Baig MD MD cha Ballard, Brenda, RN RN Cady Diehl, RN RN aa5 Elin Hammonds, RN RN eb1 Corrections: (The following items were deleted from the chart) 02/23 19:41 19:24 02/23/2019 19:24 Patient left the facility before being seen by provider. Reason kb stated they are leaving due to unknown. 21:33 20:49 02/23/2019 20:49 Discharged to Home. Impression: Less than 8 weeks gestation of eb1 ; Threatened . Condition is Stable. Forms are Medication Reconciliation Form, Thank You Letter, Antibiotic Education, Prescription Opioid Use. Follow up: Emergency Department; When: As needed; Reason: Worsening of condition. Follow up: Private Physician; When: 2 - 3 days; Reason: Recheck today's complaints, Continuance of care, Re-evaluation by your physician. kb
--- NOTE | 2019-02-23 20:57 | RAD REPORT ---
EXAM DESCRIPTION: US - Transvaginal OB - 02/23/2019 8:01 pm CLINICAL HISTORY: Cramping, vaginal bleeding, COMPARISON: None. FINDINGS: Single normal shaped intrauterine gestational sac is identified. pole yolk sac also identified. Heart rate is 167 BPM. A small 10 x 4 mm subchorionic hemorrhage is present not clinicall y significant at that size. [place]-rump length measurement corresponds to a 7 week 4 day age. SHELLI is 0 10/08/2019. Neither ovary was identifiable due to prominent bowel. No adnexal mass. No adnexal or cul-de-sac free fluid. Cervical canal appears closed. IMPRESSION: Single 7 week 4 day IUP is seen with SHELLI of 10/08/2019. Heart rate 167 BPM. A small 10 x 4 mm subchorionic hemorrhage is present not significant at the current size. No adnexal abnormality seen. Neither ovary was visualized due to bowel.
[2019-02-23 21:08] LABS: BUN Blood Urea Nitrogen 9 mg/dL (7-18); Bicarbonate 24 mmol/L (21-32); Glucose Level 89 mg/dL (74-106); HCG, Quantitative 139252 mIU/mL (1-3); Potassium 3.4 mmol/L (3.5-5.1); Sodium Level 139 mmol/L (136-145)
[2019-02-24 01:29] VITALS: BP 121/83; TEMP 98; O2SAT 100
== END 2019-02-23 21:33 | disposition home or self-care (01) ==
LOC: ER 17:24
DX: O20.0 Threatened abortion (principal); Z3A.01 Less than 8 weeks gestation of pregnancy
CPT/HCPCS: 36415; 76817; 80048; 81003; 81025; 84702; 85025; 86900; 86901; 99283